=== PATIENT | female | born 1935 | race Two or more races ===

== ENCOUNTER 2017-08-30 11:28 | Outpatient (CLI) | payer OTHER | END 2017-08-30 15:00 | disposition home or self-care (01) | LOC: RAD 11:28 | DX: M87.9 Osteonecrosis, unspecified (principal) ==

== ENCOUNTER 2017-10-29 09:41 | Outpatient (CLI) | payer OTHER | END 2017-10-29 13:07 | disposition home or self-care (01) | LOC: LAB 09:41 | DX: A69.20 Lyme disease, unspecified (principal); A69.29 Other conditions associated with Lyme disease ==

== ENCOUNTER 2017-11-15 11:23 | Outpatient (CLI) | payer OTHER | END 2017-11-15 17:18 | disposition home or self-care (01) | LOC: NUCLEAR 11:23 | DX: M81.0 Age-related osteoporosis without current pathological fracture (principal) ==

== ENCOUNTER → 2018-01-19 | Outpatient (CLI) | payer OTHER | END | disposition home or self-care (01) | LOC: RAD 15:51 | DX: M25.561 Pain in right knee (principal) ==

== ENCOUNTER 2018-01-30 08:11 | Outpatient (CLI) | payer OTHER | END 2018-01-30 08:15 | disposition home or self-care (01) | LOC: RAD 08:11 | DX: M17.11 Unilateral primary osteoarthritis, right knee (principal) ==

== ENCOUNTER 2019-02-21 11:19 | Outpatient (CLI) | payer OTHER | END 2019-02-21 11:28 | disposition home or self-care (01) | LOC: MAMO-SONO 11:19 | DX: Z12.31 Encounter for screening mammogram for malignant neoplasm of breast (principal); Z87.898 Personal history of other specified conditions; Z12.39 Encounter for other screening for malignant neoplasm of breast; M54.2 Cervicalgia ==

== ENCOUNTER 2020-09-04 14:09 | Outpatient (CLI) | payer OTHER ==
[~2020-09-04 14:09] MED LIST: CRESTOR10 MG; SYNTHROID75 MCG
== END 2020-09-04 14:13 | disposition home or self-care (01) ==
LOC: SONOGRAMA 14:09
PROVIDERS: ATTEND Internal Medicine Cardiovascular Disease
DX: N28.89 Other specified disorders of kidney and ureter (principal); I10 Essential (primary) hypertension

== ENCOUNTER 2020-09-09 13:51 | Outpatient (CLI) | payer OTHER | END 2020-09-09 13:52 | disposition home or self-care (01) | LOC: NUCLEAR 13:51 | PROVIDERS: ATTEND Internal Medicine Rheumatology | DX: M81.0 Age-related osteoporosis without current pathological fracture (principal) ==

== ENCOUNTER 2020-09-25 08:02 | Outpatient (CLI) | payer OTHER | END 2020-09-25 08:18 | disposition home or self-care (01) | LOC: MRI 08:02 | PROVIDERS: ATTEND Internal Medicine Cardiovascular Disease | DX: K91.0 Vomiting following gastrointestinal surgery (principal); K08.2 Atrophy of edentulous alveolar ridge | CPT/HCPCS: 72195; 74181 ==

== ENCOUNTER 2021-10-13 08:00 | Outpatient (CLI) | payer OTHER | END 2021-10-13 08:30 | disposition home or self-care (01) | LOC: PPH VACUNA 08:00 | PROVIDERS: ATTEND Emergency Medicine Pediatric Emergency Medicine | DX: Z23 Encounter for immunization (principal) ==

== ENCOUNTER 2022-04-01 10:41 | Outpatient (CLI) | payer OTHER | END 2022-04-01 10:50 | disposition home or self-care (01) | LOC: MAMO-SONO 10:41 | PROVIDERS: ATTEND Internal Medicine Cardiovascular Disease | DX: Z12.31 Encounter for screening mammogram for malignant neoplasm of breast (principal) ==

== ENCOUNTER 2023-03-31 13:11 | Outpatient (CLI) | payer OTHER | END 2023-03-31 13:12 | disposition home or self-care (01) | LOC: NUCLEAR 13:11 | PROVIDERS: ATTEND Internal Medicine Cardiovascular Disease | DX: M81.0 Age-related osteoporosis without current pathological fracture (principal) ==

== ENCOUNTER → 2023-05-30 | Outpatient (CLI) | payer OTHER | END | disposition home or self-care (01) | LOC: RAD 13:30 | PROVIDERS: ATTEND Internal Medicine Cardiovascular Disease | DX: M79.605 Pain in left leg (principal); M79.662 Pain in left lower leg ==

== ENCOUNTER 2023-08-02 15:08 | Outpatient (CLI) | payer OTHER | END 2023-08-02 15:19 | disposition home or self-care (01) | LOC: MAMO-SONO 15:08 | PROVIDERS: ATTEND Internal Medicine Cardiovascular Disease | DX: E03.8 Other specified hypothyroidism (principal); Z12.31 Encounter for screening mammogram for malignant neoplasm of breast ==

== ENCOUNTER 2023-08-22 09:44 | Outpatient (CLI) | payer OTHER | END 2023-08-22 09:46 | disposition home or self-care (01) | LOC: SONOGRAMA 09:44 | PROVIDERS: ATTEND Pathology Anatomic Pathology | DX: D34 Benign neoplasm of thyroid gland (principal); E07.89 Other specified disorders of thyroid; E04.2 Nontoxic multinodular goiter ==

== ENCOUNTER 2025-03-19 07:56 | Outpatient (CLI) | payer OTHER | END 2025-04-09 08:01 | disposition home or self-care (01) | LOC: MAMO-SONO 07:56 | PROVIDERS: ATTEND Internal Medicine Cardiovascular Disease | DX: N60.11 Diffuse cystic mastopathy of right breast (principal); N60.12 Diffuse cystic mastopathy of left breast; Z12.31 Encounter for screening mammogram for malignant neoplasm of breast ==